=== PATIENT | female | born 1935 | race Caucasian/White ===

== ENCOUNTER 2017-11-27 09:54 | Day surgery (SDC) | payer MEDICARE ==
[2017-11-27] MEDS: LR 1,000 ML IV (10:57)
[2017-11-27] MEDS: LIDOCAINE 2% MDV 20 ML VIAL As Ordered (11:51)
[2017-11-27] MEDS: BUPIVACAINE HCL 0.5% 30 ML VIAL As Ordered (11:51)
[2017-11-27] MEDS ORDERED: dexameTHASONE 4 MG/ML 1ML VIAL (J1100) As Ordered (11:53)
[2017-11-27] MEDS ORDERED: fentaNYL 100 MCG/2 ML INJECTION (J3010) As Ordered (11:53)
[2017-11-27] MEDS ORDERED: LIDOCAINE 2% INJ 100 MG/5 ML SDV (FOR ANES.) As Ordered (11:53)
[2017-11-27] MEDS ORDERED: ONDANSETRON 4MG/2ML VIAL (J2405) As Ordered (11:53)
[2017-11-27] MEDS ORDERED: PROPOFOL 200 MG/20 ML VIAL As Ordered (11:53)
[2017-11-27] MEDS: BACITRACIN PWD 50,000 UNITS VIAL As Ordered ×2 (12:15→12:21)
[2017-11-27] MEDS: NEOSPORIN GU IRRIG 20 ML VIAL As Ordered (12:21)
[2017-11-27] MEDS: dexameTHASONE 4 MG/ML 1ML VIAL (J1100) As Ordered (12:22)
[2017-11-27] MEDS ORDERED: MIDAZOLAM INJ 2 MG/2 ML VIAL (J2250) As Ordered (12:24)
[2017-11-27] MEDS ORDERED: LR 1,000 ML IV (13:00)
[2017-11-27] MEDS ORDERED: ONDANSETRON 4MG/2ML VIAL (J2405) IV (13:00)
[2017-11-27] MEDS ORDERED: fentaNYL 100 MCG/2 ML INJECTION (J3010) IV (13:00)
[2017-11-27] MEDS ORDERED: NORCO, ANEXSIA 5/325MG TABLET (HYDROcodone/ACETAMINOPHEN) PO (13:00)
== END 2017-11-27 13:25 | disposition home or self-care (01) ==
LOC: M SDC 09:54
DX: M20.41 Other hammer toe(s) (acquired), right foot (principal); I10 Essential (primary) hypertension; K21.9 Gastro-esophageal reflux disease without esophagitis; E03.9 Hypothyroidism, unspecified; Z79.899 Other long term (current) drug therapy; Z79.82 Long term (current) use of aspirin
CPT/HCPCS: 28285

== ENCOUNTER 2022-04-09 10:50 | Inpatient (IN) | payer MEDICARE ==
[~2022-04-09] VITALS: Ht 167.6 cm; Wt 85.2 kg
[~2022-04-09 10:50] MED LIST: AMIT10TA7 PO; ASPI81TA26 PO; CRAN400C PO; FOLI800C PO; FURO20TA2 PO; LEVO100T5 PO; LISI10TA22 PO; MAGN400C2 PO; METH2.5T48 PO; METO1TAB33 PO; MIRA0.12 PO; PANT40TA29 PO; SPIR-10 PO; TRAM50TA2 PO; VITA200016 PO; VITATAB11 PO; iron PO
[2022-04-09] MEDS ORDERED: ACETAMINOPHEN 325 MG TAB PO ONE (11:20)
[2022-04-09 11:31] LABS: VENOUS BASE EXCESS 1.1 (-2.0-2.0); VENOUS HCO3 26.8 MEQ/L (23.0-27.0); VENOUS O2 SATURATION 75.8 % (60.0-80.0); VENOUS PARTIAL PRESSURE O2 39.4 mmHg (30.0-50.0); VENOUS PH 7.374 UNITS (7.330-7.430); VENOUS STANDARD HCO3 24.9 MEQ/L; VENOUS TOTAL CO2 28.2 MEQ/L (24.0-28.0)
[2022-04-09 11:33] LABS: BASO % 0.3 % (0.0-1.0); EOS % 0.3 % (0.0-3.0); HEMOGLOBIN 12.6 g/dl (12.0-15.5); LYMPH # 0.7 10^3/uL (1.5-5.0); LYMPH % 10.4 % (24.0-44.0); MEAN CORPUSCULAR HEMOGLOBIN 30.1 pg (27.0-33.0); MEAN CORPUSCULAR HGB CONC 31.5 g/dl (32.0-36.5); MEAN CORPUSCULAR VOLUME 95.7 fl (80.0-96.0); MONO # 0.6 10^3/uL (0.0-0.8); MONO % 9.1 % (2.0-8.0); NEUTROPHILS # 5.2 10^3/uL (1.5-8.5); NEUTROPHILS % 79.4 % (36.0-66.0); PLATELET COUNT, AUTOMATED 192 10^3/uL (150-450); RED BLOOD COUNT 4.18 10^6/uL (4.00-5.40); WHITE BLOOD COUNT 6.5 10^3/uL (4.0-10.0)
[2022-04-09 11:49] LABS: INR 1.06
[2022-04-09 12:04] LABS: ALBUMIN 3.3 G/DL (3.2-5.2); ALKALINE PHOSPHATASE 113 U/L (46-116); ALT/SGPT 19 U/L (7.0-40); AST/SGOT 21 U/L (<34); BILIRUBIN,DIRECT 0.4 MG/DL (<0.4); BILIRUBIN,TOTAL 0.9 MG/DL (0.3-1.2); BLOOD UREA NITROGEN 20 MG/DL (9-23); CALCIUM LEVEL 8.3 MG/DL (8.3-10.6); CARBON DIOXIDE LEVEL 27 MMOL/L (20-31); CHLORIDE LEVEL 102 MMOL/L (98-107); GLOMERULAR FILTRATION RATE > 60.0 (>32); GLUCOSE, FASTING 113 MG/DL (74-106); POTASSIUM SERUM 4.6 MMOL/L (3.5-5.1); SODIUM LEVEL 138 MMOL/L (136-145); TOTAL PROTEIN 6.3 G/DL (5.7-8.2)
[2022-04-09] MEDS ORDERED: AZITHROMYCIN 250MG TABLET PO ONE (12:55)
[2022-04-09] MEDS ORDERED: cefTRIAXone SOD 1 GM in D5W MINI-BAG PLUS 50 ML IV ONE (12:55)
[2022-04-09] MEDS ORDERED: ISOVUE-370 76% 100ML VIAL As Ordered ONE (13:15)
[2022-04-09] MEDS ORDERED: ACETAMINOPHEN TAB 650MG DOSE (2X325MG) PO PRN (14:30)
[2022-04-09] MEDS ORDERED: IPRATROPIUM 0.5MG/ALBUTEROL 2.5MG INH SOL UD 3ML (DUONEB) NEB PRN (14:30)
[2022-04-09] MEDS: methylPREDNISolone 40MG 1ML VIAL IV SCH (14:45)
[2022-04-09] MEDS: DOXYCYCLINE HYCLATE 100 MG in D5W MINI-BAG PLUS 100 ML IV SCH (14:45)
[2022-04-09] MEDS ORDERED: VITA500T40 PO (15:38)
[2022-04-09] MEDS ORDERED: VITA200016 PO (15:38)
[2022-04-09] MEDS ORDERED: BENZ-18 PO (15:42)
[2022-04-09] MEDS ORDERED: FERR325T3 PO (15:42)
[2022-04-09] MEDS ORDERED: PRAM1TAB7 PO (15:42)
[2022-04-09] MEDS ORDERED: ENTR1TAB PO (15:42)
[2022-04-09] MEDS ORDERED: HOME MED LIST COMPLETE! XX SCH (15:45)
[2022-04-09] MEDS ORDERED: MED REC COMMENT (15:45)
[2022-04-09] MEDS ORDERED: EZET10TA21 PO (15:47)
[2022-04-09 15:50] VITALS: BP 144/81
[2022-04-09 18:00] VITALS: BP 101/60
[2022-04-09] MEDS: IPRATROPIUM 0.5MG/ALBUTEROL 2.5MG INH SOL UD 3ML (DUONEB) NEB SCH (20:00)
[2022-04-09 20:33] VITALS: BP 98/54
[2022-04-09] MEDS: AMITRIPTYLINE 10MG TABLET PO SCH (21:00)
[2022-04-09] MEDS ORDERED: SODIUM CHLORIDE 0.9% 1000ML IV ONE (21:20)
[2022-04-09 22:32] VITALS: BP 98/52
[2022-04-09] MEDS ORDERED: NS 500 ML IV ONE (22:40)
[2022-04-09 23:30] LABS: VENOUS BASE EXCESS -0.6 (-2.0-2.0); VENOUS HCO3 26.1 MEQ/L (23.0-27.0); VENOUS O2 SATURATION 77.8 % (60.0-80.0); VENOUS PARTIAL PRESSURE CO2 52.4 mmHg (38.0-50.0); VENOUS PARTIAL PRESSURE O2 43.3 mmHg (30.0-50.0); VENOUS PH 7.316 UNITS (7.330-7.430); VENOUS STANDARD HCO3 23.5 MEQ/L; VENOUS TOTAL CO2 27.8 MEQ/L (24.0-28.0)
[2022-04-09 23:55] LABS: MAGNESIUM LEVEL 1.9 MG/DL (1.8-2.4)
[2022-04-10] VITALS (7 sets, daily range): BP systolic 93–120; BP diastolic 50–78; O2SAT 92–93
[2022-04-10 00:07] LABS: THYROID STIMULATING HORMONE 0.737 uIU/ML (0.55-4.78)
[2022-04-10] MEDS: IPRATROPIUM 0.5MG/ALBUTEROL 2.5MG INH SOL UD 3ML (DUONEB) NEB SCH ×4 (00:40→18:13)
[2022-04-10] MEDS: DOXYCYCLINE HYCLATE 100 MG in D5W MINI-BAG PLUS 100 ML IV SCH (03:07)
[2022-04-10] MEDS ORDERED: NS 1,000 ML IV SCH (03:35)
[2022-04-10] MEDS ORDERED: FLUTICASONE PROP 0.05% NASAL SPRAY 16 GM (FLONASE) NARES PRN (04:00)
[2022-04-10] MEDS: CEPACOL LOZENGE PO PRN ×3 (04:25→20:35)
[2022-04-10] MEDS: guaiFENesin SYRUP 200MG 10ML UDC PO PRN ×3 (04:25→20:35)
[2022-04-10 06:13] LABS: VENOUS BASE EXCESS 2.1 (-2.0-2.0); VENOUS HCO3 26.7 MEQ/L (23.0-27.0); VENOUS PARTIAL PRESSURE CO2 41.7 mmHg (38.0-50.0); VENOUS PARTIAL PRESSURE O2 148.6 mmHg (30.0-50.0); VENOUS PH 7.425 UNITS (7.330-7.430); VENOUS STANDARD HCO3 26.4 MEQ/L
[2022-04-10 06:18] LABS: HEMATOCRIT 33.1 % (36.0-47.0); HEMOGLOBIN 10.9 g/dl (12.0-15.5); MEAN CORPUSCULAR HEMOGLOBIN 31.1 pg (27.0-33.0); MEAN CORPUSCULAR HGB CONC 32.9 g/dl (32.0-36.5); MEAN CORPUSCULAR VOLUME 94.6 fl (80.0-96.0); PLATELET COUNT, AUTOMATED 182 10^3/uL (150-450); WHITE BLOOD COUNT 11.2 10^3/uL (4.0-10.0)
[2022-04-10 06:35] LABS: BLOOD UREA NITROGEN 20 MG/DL (9-23); CALCIUM LEVEL 8.3 MG/DL (8.3-10.6); CARBON DIOXIDE LEVEL 26 MMOL/L (20-31); CHLORIDE LEVEL 106 MMOL/L (98-107); CREATININE FOR GFR 0.64 MG/DL (0.55-1.30); GLOMERULAR FILTRATION RATE > 60.0 (>32); GLUCOSE, FASTING 125 MG/DL (74-106); POTASSIUM SERUM 3.9 MMOL/L (3.5-5.1); SODIUM LEVEL 139 MMOL/L (136-145)
[2022-04-10] MEDS: METOPROLOL SUCC (TopROL XL) 100MG *XL* TAB PO SCH (08:11)
[2022-04-10] MEDS ORDERED: PREVNAR-20 VACCINE 0.5ML SYRINGE IM.IMMUN ONE (09:00)
[2022-04-10] MEDS: PRAMIPEXOLE 1 MG TAB PO SCH (09:07)
[2022-04-10] MEDS: PANTOPRAZOLE 40MG TAB (PROTONIX) PO SCH (09:07)
[2022-04-10] MEDS: ENOXAPARIN 40MG/0.4ML SYRINGE (J1650 PER 10MG) SC SCH (09:08)
[2022-04-10] MEDS: ENTRESTO 24-26MG TABLET (SACUBITRIL/VALSARTAN) PO SCH (09:08)
[2022-04-10] MEDS: CYANOCOBALAMIN 500 MCG TAB PO SCH (09:08)
[2022-04-10] MEDS: ASPIRIN 81MG ENTERIC TABLET PO SCH (09:12)
[2022-04-10] MEDS: cefTRIAXone SOD 2 GM in D5W MINI-BAG PLUS 50 ML IV SCH (13:36)
[2022-04-10] MEDS: methylPREDNISolone 40MG 1ML VIAL IV SCH (14:34)
[2022-04-10] MEDS: DOXYCYCLINE HYCLATE 100MG TABLET PO SCH (19:21)
[2022-04-10] MEDS: AMITRIPTYLINE 10MG TABLET PO SCH (20:35)
[2022-04-11] MEDS: IPRATROPIUM 0.5MG/ALBUTEROL 2.5MG INH SOL UD 3ML (DUONEB) NEB SCH ×4 (01:41→20:34)
[2022-04-11 02:01] VITALS: BP 138/59
[2022-04-11 04:45] VITALS: BP 137/60
[2022-04-11] MEDS: DOXYCYCLINE HYCLATE 100MG TABLET PO SCH ×2 (05:02→18:18)
[2022-04-11 05:52] LABS: HEMATOCRIT 32.5 % (36.0-47.0); HEMOGLOBIN 10.6 g/dl (12.0-15.5); MEAN CORPUSCULAR HEMOGLOBIN 30.7 pg (27.0-33.0); MEAN CORPUSCULAR HGB CONC 32.6 g/dl (32.0-36.5); MEAN CORPUSCULAR VOLUME 94.2 fl (80.0-96.0); PLATELET COUNT, AUTOMATED 219 10^3/uL (150-450); RED BLOOD COUNT 3.45 10^6/uL (4.00-5.40); WHITE BLOOD COUNT 9.8 10^3/uL (4.0-10.0)
[2022-04-11 06:17] LABS: BLOOD UREA NITROGEN 35 MG/DL (9-23); CALCIUM LEVEL 8.5 MG/DL (8.3-10.6); CARBON DIOXIDE LEVEL 25 MMOL/L (20-31); CHLORIDE LEVEL 105 MMOL/L (98-107); GLOMERULAR FILTRATION RATE > 60.0 (>32); GLUCOSE, FASTING 129 MG/DL (74-106); POTASSIUM SERUM 4.3 MMOL/L (3.5-5.1); SODIUM LEVEL 139 MMOL/L (136-145)
[2022-04-11] MEDS: CYANOCOBALAMIN 500 MCG TAB PO SCH (09:14)
[2022-04-11] MEDS: PRAMIPEXOLE 1 MG TAB PO SCH (09:14)
[2022-04-11] MEDS: ENTRESTO 24-26MG TABLET (SACUBITRIL/VALSARTAN) PO SCH (09:14)
[2022-04-11] MEDS: PANTOPRAZOLE 40MG TAB (PROTONIX) PO SCH (09:14)
[2022-04-11] MEDS: ENOXAPARIN 40MG/0.4ML SYRINGE (J1650 PER 10MG) SC SCH (09:14)
[2022-04-11] MEDS: ASPIRIN 81MG ENTERIC TABLET PO SCH (09:14)
[2022-04-11] MEDS: METOPROLOL SUCC (TopROL XL) 100MG *XL* TAB PO SCH (09:15)
[2022-04-11 10:00] VITALS: BP 121/63
[2022-04-11 14:00] VITALS: BP 121/62
[2022-04-11] MEDS: cefTRIAXone SOD 2 GM in D5W MINI-BAG PLUS 50 ML IV SCH (14:01)
[2022-04-11] MEDS: methylPREDNISolone 40MG 1ML VIAL IV SCH (15:12)
[2022-04-11 18:00] VITALS: BP 144/76
[2022-04-11] MEDS: AMITRIPTYLINE 10MG TABLET PO SCH (20:42)
[2022-04-11 22:00] VITALS: BP 125/55
[2022-04-11] MEDS: guaiFENesin SYRUP 200MG 10ML UDC PO PRN (23:52)
[2022-04-12] MEDS: IPRATROPIUM 0.5MG/ALBUTEROL 2.5MG INH SOL UD 3ML (DUONEB) NEB SCH ×2 (01:54→07:48)
[2022-04-12 02:00] VITALS: BP 136/65
[2022-04-12] MEDS: DOXYCYCLINE HYCLATE 100MG TABLET PO SCH (05:21)
[2022-04-12 06:00] VITALS: BP 135/71
[2022-04-12 06:24] LABS: HEMATOCRIT 33.8 % (36.0-47.0); HEMOGLOBIN 10.9 g/dl (12.0-15.5); MEAN CORPUSCULAR HEMOGLOBIN 30.6 pg (27.0-33.0); MEAN CORPUSCULAR HGB CONC 32.2 g/dl (32.0-36.5); MEAN CORPUSCULAR VOLUME 94.9 fl (80.0-96.0); PLATELET COUNT, AUTOMATED 256 10^3/uL (150-450); RED BLOOD COUNT 3.56 10^6/uL (4.00-5.40); WHITE BLOOD COUNT 10.1 10^3/uL (4.0-10.0)
[2022-04-12 06:46] LABS: BLOOD UREA NITROGEN 31 MG/DL (9-23); CALCIUM LEVEL 9.2 MG/DL (8.3-10.6); CARBON DIOXIDE LEVEL 25 MMOL/L (20-31); CHLORIDE LEVEL 105 MMOL/L (98-107); CREATININE FOR GFR 0.69 MG/DL (0.55-1.30); GLOMERULAR FILTRATION RATE > 60.0 (>32); GLUCOSE, FASTING 116 MG/DL (74-106); POTASSIUM SERUM 4.7 MMOL/L (3.5-5.1); SODIUM LEVEL 138 MMOL/L (136-145)
[2022-04-12] MEDS: ASPIRIN 81MG ENTERIC TABLET PO SCH (09:06)
[2022-04-12] MEDS: ENTRESTO 24-26MG TABLET (SACUBITRIL/VALSARTAN) PO SCH (09:06)
[2022-04-12] MEDS: PANTOPRAZOLE 40MG TAB (PROTONIX) PO SCH (09:06)
[2022-04-12] MEDS: CYANOCOBALAMIN 500 MCG TAB PO SCH (09:06)
[2022-04-12] MEDS: PRAMIPEXOLE 1 MG TAB PO SCH (09:06)
[2022-04-12 09:08] VITALS: BP 136/73
[2022-04-12] MEDS: METOPROLOL SUCC (TopROL XL) 100MG *XL* TAB PO SCH (09:08)
[2022-04-12] MEDS: ENOXAPARIN 40MG/0.4ML SYRINGE (J1650 PER 10MG) SC SCH (09:08)
[2022-04-12 10:00] VITALS: BP 119/69
[2022-04-12] MEDS ORDERED: DOXY100C3 PO (10:48)
[2022-04-12] MEDS ORDERED: CEFU50TA PO (10:48)
== END 2022-04-12 12:42 | disposition home or self-care (01) | DRG 194 ==
LOC: M ED 10:50 → EDBD 10:50 → M ED INP 14:28 → ENRESERV 15:17 → M MSPAV 15:51
PROVIDERS: ADMIT Family Medicine; ATTEND Family Medicine
DX: J18.9 Pneumonia, unspecified organism (principal); I50.22 Chronic systolic (congestive) heart failure; M06.9 Rheumatoid arthritis, unspecified; G25.81 Restless legs syndrome; I11.0 Hypertensive heart disease with heart failure; E03.9 Hypothyroidism, unspecified; E55.9 Vitamin D deficiency, unspecified; Z20.822 Contact with and (suspected) exposure to COVID-19; Z79.899 Other long term (current) drug therapy; Z79.890 Hormone replacement therapy

== ENCOUNTER → 2022-12-12 | Outpatient (REF) | payer MEDICARE ==
[~2022-12-12] MED LIST changes: +BENZ-18 PO; +CEFU50TA PO; +DOXY100C3 PO; +ENTR1TAB PO; +EZET10TA21 PO; +FERR325T3 PO; +MED REC COMMENT; +PRAM1TAB7 PO; +VITA500T40 PO
== END ==
LOC: M LAB REF 17:09
PROVIDERS: ATTEND Internal Medicine Nephrology
DX: N39.0 Urinary tract infection, site not specified (principal)

== ENCOUNTER → 2023-02-03 | Outpatient (REF) | payer MEDICARE | LOC: M LAB REF 17:52 | PROVIDERS: ATTEND Internal Medicine Nephrology | DX: N39.0 Urinary tract infection, site not specified (principal) ==

== ENCOUNTER → 2023-03-26 | Outpatient (REF) | payer MEDICARE ==
[2023-03-26 19:13] LABS: APPEARANCE, URINE HAZY (CLEAR); BACTERIA, URINE AUTO 3+ (NEGATIVE); BILIRUBIN, URINE AUTO NEGATIVE (NEGATIVE); BLOOD, URINE BLOOD NEGATIVE (NEGATIVE); COLOR, URINE YELLOW (YELLOW); GLUCOSE, URINE (UA) AUTO 3+ mg/dL (NEGATIVE); KETONE, URINE AUTO NEGATIVE (NEGATIVE); LEUKOCYTE ESTERASE, URINE AUTO TRACE (NEGATIVE); NITRITE, URINE AUTO POSITIVE (NEGATIVE); PROTEIN, URINE AUTO NEGATIVE (NEGATIVE); RBC, URINE AUTO 2 /HPF (0-3); SPECIFIC GRAVITY URINE AUTO 1.028 (1.002-1.035); SQUAMOUS EPITHELIAL CELL UR AU 2 /HPF (0-6); UROBILINOGEN, URINE AUTO 0.2 mg/dL (0.0-2.0); WBC, URINE AUTO 16 /HPF (0-3)
== END ==
LOC: M SMT 16:57
PROVIDERS: ATTEND Specialist
DX: N32.81 Overactive bladder (principal); Z79.899 Other long term (current) drug therapy

== ENCOUNTER → 2023-12-23 | Outpatient (REF) | payer MEDICARE ==
[~2023-12-23] MED LIST changes: -CRAN400C PO; +CRANBERRY400 MG PO
== END ==
LOC: M LAB REF 17:00
PROVIDERS: ATTEND Internal Medicine Nephrology
DX: N39.0 Urinary tract infection, site not specified (principal)

== ENCOUNTER → 2024-06-10 | Outpatient (REF) | payer MEDICARE ==
[2024-06-10 15:29] LABS: APPEARANCE, URINE HAZY (CLEAR); BACTERIA, URINE AUTO 1+ (NEGATIVE); BILIRUBIN, URINE AUTO NEGATIVE (NEGATIVE); BLOOD, URINE BLOOD NEGATIVE (NEGATIVE); COLOR, URINE YELLOW (YELLOW); GLUCOSE, URINE (UA) AUTO 3+ mg/dL (NEGATIVE); KETONE, URINE AUTO NEGATIVE (NEGATIVE); LEUKOCYTE ESTERASE, URINE AUTO NEGATIVE (NEGATIVE); MUCUS, URINE SMALL (NEGATIVE); NITRITE, URINE AUTO NEGATIVE (NEGATIVE); PROTEIN, URINE AUTO NEGATIVE (NEGATIVE); RBC, URINE AUTO 1 /HPF (0-3); SPECIFIC GRAVITY URINE AUTO 1.007 (1.002-1.035); SQUAMOUS EPITHELIAL CELL UR AU 2 /HPF (0-6); UROBILINOGEN, URINE AUTO 0.2 mg/dL (0.0-2.0); WBC, URINE AUTO 3 /HPF (0-3)
== END ==
LOC: M SMT 12:38
PROVIDERS: ATTEND Specialist
DX: N32.81 Overactive bladder (principal); Z79.899 Other long term (current) drug therapy